=== PATIENT | male | born 1970 | race Caucasian/White ===

== ENCOUNTER 2017-01-27 01:06 | Emergency (ER) | payer BC, OTHER ==
[2017-01-27 01:18] VITALS: BP 150/91
--- NOTE | 2017-01-27 01:38 | EDM.PDOC ---
ED HPI Trauma - General Chief Complaint: Upper Extremity Injury/Pain Stated Complaint: Displaced Shoulder Time Seen by Provider: 01/27/17 01:15 Source: Reports: Patient History Limitations: Reports: No limitations - History of Present Illness INITIAL COMMENTS - FREE TEXT/NARRATIVE: 46 YO WM presents to ER with right shoulder pain. Pt reports he was getting out of the shower when he slipped and tried to catch himself by grabbing the side of the shower and dislocating his right shoulder. Pt denies previous history of shoulder dislocations. Pt denies falling or any other injury. Symptom Onset Date: 01/27/17 Symptom Onset Time: 01:15 Occurred When: just prior to arrival Occurred Where: home Method of Injury: fall Severity: moderate Pain/Injury Location: Reports: upper extremity, right Consciousness: Reports: no loss of consciousness Associated Symptoms: Reports: no other symptoms Allergies/ADRs: Allergies acetaminophen [From Tylenol] Allergy (Verified 01/27/17 01:09) Hives Home Medications: Ambulatory Orders traMADol [Ultram] 50 mg PO Q6H PRN #15 tablet 01/27/17 Past Medical History - Past Health History Medical/Surgical History: Denies Medical/Surgical History - Past Surgical History Musculoskeletal Surgical History: Reports: Arthroscopic knee Other Musculoskeletal Surgeries/Procedures:: right knee 1 yr ago Social & Family History - Family History Family Medical History: Noncontributory - Tobacco Use Smoking Status *Q: Never Smoker Second Hand Smoke Exposure: No - Caffeine Use Caffeine Use: Reports: None - Alcohol Use Days Per Week of Alcohol Use: 2 Number of Drinks Per Day: 5 Total Drinks Per Week: 10 - Recreational Drug Use Recreational Drug Use: No Review of Systems - Review of Systems Review Of Systems: See Below Constitutional: Reports: no symptoms Eyes: Reports: no symptoms Ears: Reports: no symptoms Nose: Reports: no symptoms Mouth/Throat: Reports: no symptoms Respiratory: Reports: No Symptoms Cardiovascular: Reports: no symptoms GI/Abdominal: Reports: No symptoms Genitourinary: Reports: no symptoms Musculoskeletal: Reports: shoulder pain Skin: Reports: no symptoms Neurological: Reports: No Symptoms Psychiatric: Reports: no symptoms Trauma Exam - Physical Exam Exam: See Below Exam Limited By: No limitations General Appearance: Reports: alert, WD/WN, no apparent distress Head: Reports: atraumatic, normocephalic Neck: Reports: non-tender, full range of motion, normal alignment, normal inspection Respiratory Exam: Reports: no respiratory distress, lungs clear, normal breath sounds Cardiovascular: Reports: normal peripheral pulses, regular rate, rhythm, no edema, no gallop, no JVD, no murmur, no rub GI/Abdominal: Reports: normal bowel sounds, soft, non tender, no organomegaly, no distention, no abnormal bruit, no mass Back: Reports: full range of motion, normal inspection, non-tender Extremities: Reports: other (right shoulder anterior dislocation) 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, no motor/sensory deficits, alert , normal mood/affect, oriented x 3 Skin: Reports: Normal color, Warm/dry ED TRAUMA EXTREMITY PROCEDURES - Joint Reduction Site: shoulder (R) Pre-procedure NV status: normal Post-procedure NV status: normal Technique: traction/counter traction Number of Attempts: 1 Post-reduction imaging: completely reduced Joint Reduction Complications: No Course - Vital Signs Last Recorded V/S: Last Vital Signs Temp 36.1 C 01/27/17 01:13 Pulse 109 H 01/27/17 01:13 Resp 20 01/27/17 01:13 BP 150/91 H 01/27/17 01:13 Pulse Ox 97 01/27/17 01:13 - Radiology Interpretation Free Text/Narrative:: right shoulder- NAD; post reduction successful Departure - Departure Time of Disposition: 04:00 Disposition: Home, Self-Care 01 Condition: good Clinical Impression: Anterior shoulder dislocation Qualifiers: Encounter type: initial encounter Laterality: right Qualified Code(s): S43.014A - Anterior dislocation of right humerus, initial encounter Prescriptions: traMADol [Ultram] 50 mg PO Q6H PRN #15 tablet PRN Reason: Pain Instructions: Shoulder Dislocation, [id number] Referrals: Cathleen Dejesus MD [Physician] - Forms: ED Department Discharge - Assessment/Plan Assessment:: 1. right anterior shoulder dislocation Plan: 1. sling 2. ultram/motrin for pain 3. follow up in clinic 4. if continued discomfort then ortho referral
== END 2017-01-27 02:00 | disposition home or self-care (01) ==
LOC: KA.ED 01:06
DX: S43.014A Anterior dislocation of right humerus, initial encounter (principal); Z88.8 Allergy status to other drugs, medicaments and biological substances; W01.0XXA Fall on same level from slipping, tripping and stumbling without subsequent striking against object, initial encounter; Y92.009 Unspecified place in unspecified non-institutional (private) residence as the place of occurrence of the external cause
CPT/HCPCS: 23650; 73030-RT; 99283